=== PATIENT | male | born 2000 | race Two or more races ===

== ENCOUNTER 2024-06-27 12:33 | Emergency (ER) | payer OTHER ==
[~2024-06-27] VITALS: Ht 170.2 cm; Wt 68.2 kg
[2024-06-27 12:59] VITALS: BP 128/69; PULSE 82; RESP 24; TEMP 98.3; O2SAT 98
[2024-06-27] MEDS: ONDANSETRON HCL 4 MG/2 ML VIAL IM ONE (14:14)
[2024-06-28] MEDS ORDERED: ONDA-104 PO (20:36)
[2024-06-28] MEDS ORDERED: LOPE-232 PO (20:36)
== END 2024-06-27 14:27 ==
LOC: EMS 12:42
DX: R11.2 Nausea with vomiting, unspecified (principal); F15.90 Other stimulant use, unspecified, uncomplicated; Z02.89 Encounter for other administrative examinations
CPT/HCPCS: 99283; 96372; J2405

== ENCOUNTER 2024-06-28 19:25 | Inpatient (IN) | payer OTHER ==
[~2024-06-28] VITALS: Ht 170.2 cm; Wt 73.0 kg
[2024-06-28] MEDS ORDERED: ONDA-104 PO (20:36)
[2024-06-28] MEDS ORDERED: LOPE-232 PO (20:36)
[2024-06-28 20:50] LABS: COVID AG,FIA SOURCE NASAL SWAB
[2024-06-28 21:08] LABS: BASOPHILS % (AUTO) 0.2 % (0.0-2.0); EOSINOPHILS % (AUTO) 0 % (1.0-6.0); HEMATOCRIT 44.9 % (41-53); HEMOGLOBIN 15.4 g/dL (13.5-17.5); LYMPHOCYTES # (AUTO) 1.2 K/uL (1.0-4.8); LYMPHOCYTES % (AUTO) 13.1 % (22.0-44.0); MEAN CORPUSCULAR HEMOGLOBIN 31.3 pg (26.0-34.0); MEAN CORPUSCULAR HGB CONC 34.3 G/dL (31.0-37.0); MEAN CORPUSCULAR VOLUME 91 fL (80-100); MONOCYTES # (AUTO) 0.6 K/uL (0.1-1.0); MONOCYTES % (AUTO) 6.8 % (2.0-9.0); NEUTROPHILS # (AUTO) 7.3 K/uL (1.8-7.7); NEUTROPHILS % (AUTO) 79.9 % (40.0-70.0); PLATELET COUNT (AUTO) 307 K/uL (150-450); RED BLOOD CELL COUNT(AUTO) 4.92 MIL/uL (4.50-5.90); RED CELL DISTRIBUTION WIDTH 12.4 % (11.5-14.5); WHITE BLOOD COUNT (AUTO) 9.1 K/uL (4.5-11.0)
[2024-06-28 21:20] LABS: ANION GAP 14 mmol/L (8-16); CARBON DIOXIDE 27 mmol/L (22-29); CHLORIDE 98 mmol/L (98-107); CREATININE 0.78 mg/dL (0.60-1.30); GLOMERULAR FILTR. RATE CALC > 60 mL/min (>60); GLUCOSE,RANDOM 121 mg/dL (70-110); POTASSIUM 3.2 mmol/L (3.5-5.1); SODIUM SERUM 139 mmol/L (136-145); UREA NITROGEN, BLOOD 15 mg/dL (7-18)
[2024-06-28 21:40] LABS: ALCOHOL, BLOOD (SERUM) < 3 mg/dL (0-10)
[2024-06-28] MEDS: ONDANSETRON HCL 4 MG/2 ML VIAL IVP PRN (21:41)
[2024-06-28] MEDS: RINGERS SOLUTION,LACTATED 1,000 ML IV SCH (21:41)
[2024-06-28 21:45] LABS: SARS-COV2 (COVID) ANTIGEN,FIA Negative (Negative)
[2024-06-28] MEDS: KETOROLAC TROMETHAMINE 15 MG/ML VIAL IVP PRN (21:49)
[2024-06-28] MEDS: ACETAMINOPHEN 325 MG TABLET PO PRN (21:49)
[2024-06-28] MEDS: HydrOXYzine PAMOATE 25 MG CAPSULE PO SCH (21:50)
[2024-06-28] MEDS: POTASSIUM CHLORIDE 20 MEQ ER TABLET PO ONE ×2 (22:11→22:45)
[2024-06-28] MEDS: HEPARIN SODIUM,PORCINE 5,000 UNITS/ML VIAL SQ SCH (22:11)
[2024-06-28] MEDS: METOCLOPRAMIDE HCL 5 MG/ML 2 ML VIAL IVP ONE (22:11)
[2024-06-28] MEDS ORDERED: POTASSIUM CHL 10 MEQ/WATER 50 ML IV PRN (22:15)
[2024-06-28 22:34] VITALS: BP 125/78; PULSE 79; RESP 20; TEMP 98.7; O2SAT 100
[2024-06-29 04:54] VITALS: BP 135/79; PULSE 81; RESP 20; TEMP 99.2; O2SAT 99
[2024-06-29 08:12] VITALS: BP 133/79; PULSE 76; RESP 18; TEMP 99.2; O2SAT 100
[2024-06-29] MEDS: ONDANSETRON HCL 4 MG/2 ML VIAL IVP PRN (08:29)
[2024-06-29] MEDS ORDERED: POTASSIUM CHLORIDE 20 MEQ ER TABLET PO PRN (08:45)
[2024-06-29 10:24] LABS: BASOPHILS % (AUTO) 0.1 % (0.0-2.0); EOSINOPHILS % (AUTO) 0 % (1.0-6.0); HEMATOCRIT 45.8 % (41-53); HEMOGLOBIN 15.6 g/dL (13.5-17.5); LYMPHOCYTES # (AUTO) 1.4 K/uL (1.0-4.8); LYMPHOCYTES % (AUTO) 7.1 % (22.0-44.0); MEAN CORPUSCULAR HEMOGLOBIN 30.9 pg (26.0-34.0); MEAN CORPUSCULAR HGB CONC 34.1 G/dL (31.0-37.0); MEAN CORPUSCULAR VOLUME 91 fL (80-100); MONOCYTES # (AUTO) 1.3 K/uL (0.1-1.0); MONOCYTES % (AUTO) 6.6 % (2.0-9.0); NEUTROPHILS # (AUTO) 16.4 K/uL (1.8-7.7); PLATELET COUNT (AUTO) 297 K/uL (150-450); RED BLOOD CELL COUNT(AUTO) 5.05 MIL/uL (4.50-5.90); RED CELL DISTRIBUTION WIDTH 12.6 % (11.5-14.5); WHITE BLOOD COUNT (AUTO) 19.1 K/uL (4.5-11.0)
[2024-06-29 10:25] LABS: NEUTROPHILS % (AUTO) 86.2 % (40.0-70.0)
[2024-06-29 10:42] LABS: ANION GAP 9 mmol/L (8-16); CALCIUM, TOTAL 9.1 mg/dL (8.8-10.5); CARBON DIOXIDE 31 mmol/L (22-29); CHLORIDE 100 mmol/L (98-107); CREATININE 0.74 mg/dL (0.60-1.30); GLOMERULAR FILTR. RATE CALC > 60 mL/min (>60); GLUCOSE,RANDOM 136 mg/dL (70-110); SODIUM SERUM 140 mmol/L (136-145); UREA NITROGEN, BLOOD 17 mg/dL (7-18)
[2024-06-29 11:01] LABS: POTASSIUM 2.9 mmol/L (3.5-5.1)
[2024-06-29] MEDS: POTASSIUM CHL 10 MEQ/WATER 50 ML IV PRN (11:50)
[2024-06-29] MEDS ORDERED: SODIUM CHLORIDE 0.9% 1,000 ML ONE (11:53)
[2024-06-29] MEDS: ACETAMINOPHEN 650 MG RECTAL SUPPOSITORY PR PRN (12:20)
[2024-06-29 16:06] VITALS: BP 126/75; PULSE 79; RESP 19; TEMP 98.5; O2SAT 100
[2024-06-29 19:41] VITALS: BP 133/77; PULSE 78; RESP 20; TEMP 99.3; O2SAT 100
[2024-06-29 20:00] LABS: APPEARANCE,URINE CLEAR (CLEAR); BILIRUBIN,URINE NEGATIVE (NEGATIVE); COLOR,URINE YELLOW (YELLOW); GLUCOSE, URINE (UA) TRACE mg/dL (NEGATIVE); KETONES,URINE 40-60 mg/dL (NEGATIVE); LEUKOCYTE ESTERASE ,URINE NEGATIVE (NEGATIVE); NITRATE,URINE NEGATIVE (NEGATIVE); OCCULT BLOOD,URINE NEGATIVE (NEGATIVE); PROTEIN,URINE 30-70 mg/dL (NEGATIVE); SPECIFIC GRAVITIY, URINE 1.038 (1.003-1.030)
[2024-06-29 20:08] LABS: BACTERIA,URINE Rare /HPF (None Seen); RBC,URINE 0-2 /HPF (0-2); SQUAMOUS EPITHELIAL CELL,UR Rare /LPF (None Seen); WBC,URINE 0-2 /HPF (0-5)
[2024-06-29 20:20] LABS: ALCOHOL, URINE DRUG SCREEN NEGATIVE (NEGATIVE); AMPHET/METH SCREEN,URINE POSITIVE (NEGATIVE); BARBITURATE SCREEN, URINE NEGATIVE (NEGATIVE); BENZODIAZEPINES SCREEN,URINE NEGATIVE (NEGATIVE); CANNABINOID SCREEN,URINE NEGATIVE (NEGATIVE); COCAINE SCREEN,URINE NEGATIVE (NEGATIVE); METHADONE SCREEN, URINE NEGATIVE (NEGATIVE); OPIATE SCREEN,URINE NEGATIVE (NEGATIVE); PHENCYCLIDINE SCREEN,URINE NEGATIVE (NEGATIVE)
[2024-06-30 05:39] VITALS: BP 129/77; PULSE 78; RESP 18; TEMP 98.9; O2SAT 100
[2024-06-30 09:50] LABS: ANION GAP 13 mmol/L (8-16); CALCIUM, TOTAL 9.2 mg/dL (8.8-10.5); CARBON DIOXIDE 26 mmol/L (22-29); CHLORIDE 103 mmol/L (98-107); CREATININE 0.72 mg/dL (0.60-1.30); GLOMERULAR FILTR. RATE CALC > 60 mL/min (>60); GLUCOSE,RANDOM 114 mg/dL (70-110); POTASSIUM 3.6 mmol/L (3.5-5.1); SODIUM SERUM 142 mmol/L (136-145); UREA NITROGEN, BLOOD 15 mg/dL (7-18)
[2024-06-30] MEDS: PB/HYOSCY/ATR/SCOP/LIDO/MAALOX 55 ML BOTTLE PO ONE (15:02)
[2024-06-30] MEDS ORDERED: SODIUM CHLORIDE 0.9% 250 ML IV ONE (16:21)
[2024-06-30] MEDS: PIPERACILLIN/TAZO 3.375 GM/D5W 50 ML IV SCH (16:22)
[2024-06-30 20:06] VITALS: BP 126/66; PULSE 83; RESP 18; TEMP 99; O2SAT 97
[2024-07-01 05:26] VITALS: BP 127/79; PULSE 80; RESP 18; TEMP 98.7; O2SAT 97
[2024-07-01 07:04] LABS: BASOPHILS % (AUTO) 0.2 % (0.0-2.0); EOSINOPHILS % (AUTO) 0 % (1.0-6.0); HEMATOCRIT 47.1 % (41-53); LYMPHOCYTES # (AUTO) 2.8 K/uL (1.0-4.8); LYMPHOCYTES % (AUTO) 31.3 % (22.0-44.0); MEAN CORPUSCULAR HEMOGLOBIN 31.4 pg (26.0-34.0); MEAN CORPUSCULAR HGB CONC 33.9 G/dL (31.0-37.0); MEAN CORPUSCULAR VOLUME 93 fL (80-100); MONOCYTES # (AUTO) 0.9 K/uL (0.1-1.0); MONOCYTES % (AUTO) 9.6 % (2.0-9.0); NEUTROPHILS # (AUTO) 5.3 K/uL (1.8-7.7); NEUTROPHILS % (AUTO) 58.9 % (40.0-70.0); PLATELET COUNT (AUTO) 274 K/uL (150-450); RED BLOOD CELL COUNT(AUTO) 5.08 MIL/uL (4.50-5.90); RED CELL DISTRIBUTION WIDTH 12.5 % (11.5-14.5)
[2024-07-01 07:18] LABS: ANION GAP 7 mmol/L (8-16); CALCIUM, TOTAL 8.6 mg/dL (8.8-10.5); CARBON DIOXIDE 28 mmol/L (22-29); CHLORIDE 105 mmol/L (98-107); CREATININE 0.87 mg/dL (0.60-1.30); GLOMERULAR FILTR. RATE CALC > 60 mL/min (>60); GLUCOSE,RANDOM 124 mg/dL (70-110); POTASSIUM 3.8 mmol/L (3.5-5.1); SODIUM SERUM 140 mmol/L (136-145); UREA NITROGEN, BLOOD 10 mg/dL (7-18)
[2024-07-01 07:30] VITALS: BP 116/65; PULSE 77; RESP 20; TEMP 98.4; O2SAT 100
[2024-07-01] MEDS ORDERED: AMOX-457 PO (14:52)
[2024-07-01 15:12] VITALS: BP 123/73; PULSE 95; RESP 20; TEMP 100.1; O2SAT 100
[2024-07-01] MEDS ORDERED: ACETAMINOPHEN 325 MG TABLET PO ONE (15:45)
[2024-07-01] MEDS: ACETAMINOPHEN 325 MG TABLET PO ONE (15:47)
== END 2024-07-01 17:21 | DRG 896 ==
LOC: EMS 19:25 → EDH 20:35 → 6S 22:25
PROVIDERS: ADMIT Internal Medicine; ATTEND Internal Medicine
DX: F11.93 Opioid use, unspecified with withdrawal (principal); J69.0 Pneumonitis due to inhalation of food and vomit; R65.10 Systemic inflammatory response syndrome (SIRS) of non-infectious origin without acute organ dysfunction; E87.6 Hypokalemia; E86.0 Dehydration; Z20.822 Contact with and (suspected) exposure to COVID-19; F15.10 Other stimulant abuse, uncomplicated
CPT/HCPCS: 71045; 80048; 80307; 81001; 83735; 84132; 85025; 99285; G0480; J1644; J1885; J2405; J2543; J2765; J3480; J7030; J7050; J7120; 36415-L1; 36415-TC